=== PATIENT | male | born 2000 | race Caucasian/White ===

== ENCOUNTER 2023-07-11 19:50 | Emergency (ER) | payer BC ==
[~2023-07-11] VITALS: Ht 172.7 cm; Wt 90.0 kg
[2023-07-11] MEDS ORDERED: NS 1,000 ML IV SCH (20:00)
[2023-07-11] MEDS ORDERED: Ondansetron 4 MG/2 ML VIAL IV ONE (20:00)
[2023-07-11 20:24] LABS: BASO # 0.06 K/mm3 (0.02-0.10); EOS # 0.13 K/mm3 (0.04-0.40); EOS % 1.6 % (0.0-4.0); HEMATOCRIT 46.7 % (42.0-52.0); HEMOGLOBIN 17.1 g/dL (13.5-18.0); LYMPH# 4.17 K/mm3 (1.50-4.00); MEAN CELL VOLUME 84 fl (78-100); MEAN CORPUSCULAR HEMOGLOBIN 31 pg (27-31); MEAN CORPUSCULAR HGB CONC 37 g/dL (33-37); MEAN PLATELET VOLUME 9.2 fl (7.4-10.4); MONO # 0.69 K/mm3 (0.20-0.80); NEU # 3.14 K/mm3 (1.40-6.50); PLATELET COUNT 293 K/mm3 (130-400); RED BLOOD COUNT 5.56 M/mm3 (4.20-5.60); RED CELL DISTRIBUTION WIDTH 11.9 % (11.5-14.5); WHITE BLOOD COUNT 8.2 K/mm3 (4.8-10.8)
[2023-07-11] MEDS ORDERED: Pantoprazole 40 MG in NS 10 ML IV ONE (20:30)
[2023-07-11 20:35] LABS: ALBUMIN 4.6 g/dL (3.5-5.0)
[2023-07-11 20:36] LABS: CALCIUM 9.1 mg/dL (8.3-10.5)
[2023-07-11 20:37] LABS: TOTAL PROTEIN 7.8 g/dL (6.4-8.3)
[2023-07-11 20:39] LABS: TOTAL BILIRUBIN 0.8 mg/dL (0.2-1.2)
[2023-07-11] MEDS ORDERED: ZESTRIL5 M1 (20:42)
[2023-07-11 20:44] LABS: PROTHROMBIN TIME 11.3 SECONDS (9.0-12.0)
[2023-07-11] MEDS ORDERED: PROTONIX TR40 M1 PO (20:57)
[2023-07-11 22:49] VITALS: BP 143/89
== END 2023-07-11 23:14 | disposition home or self-care (01) ==
LOC: ED 19:50
PROVIDERS: Physician Assistant
DX: K92.0 Hematemesis (principal); F10.10 Alcohol abuse, uncomplicated
CPT/HCPCS: C9113; J2405; J7030